=== PATIENT | female | born 1945 | race Caucasian/White ===

== ENCOUNTER → 2024-06-14 11:02 | Outpatient (CLI) | payer OTHER ==
[2024-06-14 11:38] LABS: URINE APPEARANCE Clear; URINE BILIRRUBIN Negative (NEGATIVE); URINE BLOOD Negative; URINE COLOR Yellow; URINE KETONE Negative (NEGATIVE); URINE LEUKOCYTE Negative; URINE NITRATE Negative; URINE PROTEIN Negative (NEGATIVE); URINE UROBILINOGEN 0.2 E.U./dl
[2024-06-14 11:42] LABS: URINE BACTERIA 57.9 uL (0.0-1933); URINE RBC 41.5 uL (0.0-20.8); URINE WBC 8.9 uL (0.0-23.2)
[2024-06-14 11:48] LABS: HEMATOCRIT 29.7 % (36.0-45.00); MEAN CELL VOLUME 96.3 fL (80.00-100.00); MEAN CORPUSCULAR HEMOGLOBIN 32.5 pg (27.00-32.0); MEAN CORPUSCULAR HGB CONC 33.7 g/dl (32.0-36.0); PLATELET COUNT 169 K/uL (150-450); RED BLOOD COUNT 3.09 M/uL (4.00-6.00); RED CELL DISTRIBUTION WIDTH 14.7 % (11.5-14.5)
[2024-06-14 11:53] LABS: URINE CAST 0.15 uL (0.0-1.40); URINE GLUCOSE >=1000 MG/DL (NEGATIVE)
[2024-06-14 12:33] LABS: % SATURACION 27.8 % (15-50); ALBUMIN 3.7 gm/dL (3.4-5.0); BILIRUBIN TOTAL 0.48 mg/dL (0.3-1.2); CALCIUM 9.2 mg/dL (8.5-10.1); CREATININE SERUM 0.96 mg/dL (0.55-1.02); FERRITIN 75.3 NG/ML (8-252); GFR 55.92; GLOBULINA 3.5 G/DL (2.4-3.5); POTASSIUM 4.03 mEq/L (3.5-5.1); TOTAL PROTEIN 7.2 gm/dL (6.4-8.2)
[2024-06-14 12:37] LABS: TSH 1.16 uIU/mL (0.358-3.74)
[2024-06-14 13:07] LABS: FOLIC ACID > 20.00 ng/ml (4.78-20)
[2024-06-15 10:42] LABS: MANUAL PLATELET COUNT 232
[2024-06-15 10:45] LABS: PLATELET ESTIMATE NORMAL (NORMAL)
[2024-06-16 09:11] LABS: CA 125 11.4 U/mL (0.0-38.1); CA 15-3 10.3 U/mL (0.0-25.0)
[2024-06-16 13:09] LABS: ERYTHROPOIETIN 66.8 mIU/mL (2.6-18.5)
== END | disposition home or self-care (01) ==
LOC: LAB 11:02
PROVIDERS: ATTEND Internal Medicine Hematology & Oncology
DX: D50.8 Other iron deficiency anemias (principal); R79.9 Abnormal finding of blood chemistry, unspecified; I10 Essential (primary) hypertension; R74.02 Elevation of levels of lactic acid dehydrogenase [LDH]; K76.89 Other specified diseases of liver; Z80.3 Family history of malignant neoplasm of breast; D68.62 Lupus anticoagulant syndrome; D69.3 Immune thrombocytopenic purpura; C54.1 Malignant neoplasm of endometrium; D51.3 Other dietary vitamin B12 deficiency anemia; D51.1 Vitamin B12 deficiency anemia due to selective vitamin B12 malabsorption with proteinuria; D63.1 Anemia in chronic kidney disease; E11.22 Type 2 diabetes mellitus with diabetic chronic kidney disease; E78.2 Mixed hyperlipidemia; E03.8 Other specified hypothyroidism; K90.89 Other intestinal malabsorption; N63.0 Unspecified lump in unspecified breast; N60.82 Other benign mammary dysplasias of left breast; R97.8 Other abnormal tumor markers; I11.9 Hypertensive heart disease without heart failure; E78.00 Pure hypercholesterolemia, unspecified; Z13.29 Encounter for screening for other suspected endocrine disorder; E11.9 Type 2 diabetes mellitus without complications

== ENCOUNTER 2024-07-30 08:58 | Outpatient (CLI) | payer OTHER ==
[2024-07-30 11:09] LABS: HEMATOCRIT 30.6 % (36.0-45.00); HEMOGLOBIN 10.5 g/dL (12.0-15.00); MEAN CELL VOLUME 95.8 fL (80.00-100.00); MEAN CORPUSCULAR HEMOGLOBIN 32.8 pg (27.00-32.0); MEAN CORPUSCULAR HGB CONC 34.3 g/dl (32.0-36.0); PLATELET COUNT 151 K/uL (150-450); RED CELL DISTRIBUTION WIDTH 15.3 % (11.5-14.5)
== END 2024-07-30 09:04 | disposition home or self-care (01) ==
LOC: LAB 08:58
PROVIDERS: ATTEND Internal Medicine Hematology & Oncology
DX: D50.8 Other iron deficiency anemias (principal); R97.0 Elevated carcinoembryonic antigen [CEA]; R97.8 Other abnormal tumor markers; D68.62 Lupus anticoagulant syndrome; D69.3 Immune thrombocytopenic purpura; C54.1 Malignant neoplasm of endometrium; D51.1 Vitamin B12 deficiency anemia due to selective vitamin B12 malabsorption with proteinuria; D51.3 Other dietary vitamin B12 deficiency anemia; D63.1 Anemia in chronic kidney disease; E11.22 Type 2 diabetes mellitus with diabetic chronic kidney disease; N18.30 Chronic kidney disease, stage 3 unspecified; I10 Essential (primary) hypertension; E78.2 Mixed hyperlipidemia; E03.8 Other specified hypothyroidism; K90.89 Other intestinal malabsorption; N63.0 Unspecified lump in unspecified breast; N60.82 Other benign mammary dysplasias of left breast

== ENCOUNTER 2024-10-21 09:55 | Outpatient (CLI) | payer OTHER | END 2024-10-21 10:07 | disposition home or self-care (01) | LOC: MRI 09:55 | PROVIDERS: ATTEND Specialist | DX: M05.79 Rheumatoid arthritis with rheumatoid factor of multiple sites without organ or systems involvement (principal); M16.12 Unilateral primary osteoarthritis, left hip | CPT/HCPCS: 73721 ==

== ENCOUNTER → 2024-10-21 10:57 | Outpatient (CLI) | payer OTHER ==
[2024-10-21 12:24] LABS: CREATININE SERUM 1.14 mg/dL (0.55-1.02)
== END | disposition home or self-care (01) ==
LOC: LAB 10:57
PROVIDERS: ATTEND Radiology Diagnostic Radiology
DX: M05.79 Rheumatoid arthritis with rheumatoid factor of multiple sites without organ or systems involvement (principal)

== ENCOUNTER 2025-01-03 10:31 | Outpatient (CLI) | payer OTHER ==
[2025-01-03 11:14] LABS: HEMATOCRIT 30.8 % (36.0-45.00); HEMOGLOBIN 10.2 g/dL (12.0-15.00); MEAN CELL VOLUME 96.8 fL (80.00-100.00); MEAN CORPUSCULAR HEMOGLOBIN 32.1 pg (27.00-32.0); MEAN CORPUSCULAR HGB CONC 33.2 g/dl (32.0-36.0); PLATELET COUNT 106 K/uL (150-450); RED BLOOD COUNT 3.18 M/uL (4.00-6.00); RED CELL DISTRIBUTION WIDTH 15.2 % (11.5-14.5)
[2025-01-03 12:25] LABS: ALBUMIN 3.9 gm/dL (3.4-5.0); BILIRUBIN TOTAL 0.62 mg/dL (0.3-1.2); CALCIUM 9.4 mg/dL (8.5-10.1); CHOL HDL RATIO 1.7 (0-5.0); CREATININE SERUM 1.15 mg/dL (0.55-1.02); GFR 45.29; GLOBULINA 3.7 G/DL (2.4-3.5); POTASSIUM 3.86 mEq/L (3.5-5.1); TOTAL PROTEIN 7.6 gm/dL (6.4-8.2)
[2025-01-03 13:30] LABS: FOLIC ACID > 20.00 ng/ml (4.78-20)
[2025-01-03 16:33] LABS: FERRITIN 30.8 NG/ML (8-252)
== END 2025-01-03 10:36 | disposition home or self-care (01) ==
LOC: LAB 10:31
PROVIDERS: ATTEND Internal Medicine Hematology & Oncology
DX: Z80.3 Family history of malignant neoplasm of breast (principal); D69.3 Immune thrombocytopenic purpura; C54.1 Malignant neoplasm of endometrium; D68.61 Antiphospholipid syndrome; D51.3 Other dietary vitamin B12 deficiency anemia; D51.1 Vitamin B12 deficiency anemia due to selective vitamin B12 malabsorption with proteinuria; D63.1 Anemia in chronic kidney disease; E11.22 Type 2 diabetes mellitus with diabetic chronic kidney disease; N18.30 Chronic kidney disease, stage 3 unspecified; I10 Essential (primary) hypertension; E78.2 Mixed hyperlipidemia; E03.8 Other specified hypothyroidism; K90.89 Other intestinal malabsorption; N63.0 Unspecified lump in unspecified breast; N60.82 Other benign mammary dysplasias of left breast; R97.0 Elevated carcinoembryonic antigen [CEA]; I13.10 Hypertensive heart and chronic kidney disease without heart failure, with stage 1 through stage 4 chronic kidney disease, or unspecified chronic kidney disease; E78.00 Pure hypercholesterolemia, unspecified

== ENCOUNTER 2025-02-23 09:31 | Outpatient (CLI) | payer OTHER | END 2025-02-23 09:36 | disposition home or self-care (01) | LOC: SONOGRAMA 09:31 | PROVIDERS: ATTEND Internal Medicine Endocrinology, Diabetes & Metabolism | DX: E04.2 Nontoxic multinodular goiter (principal) ==

== ENCOUNTER 2025-07-09 10:33 | Outpatient (CLI) | payer OTHER ==
[2025-07-09 11:29] LABS: BASO % 0.7 % (0.1-1.2); EOS # 0.10 (0.04-0.54); EOS % 2.3 % (0.7-7.0); LYMPH # 1.62 (1.18-3.74); LYMPH % 37.4 % (19.3-53.1); MEAN PLATELET VOLUME 12.80 fl (9.4-12.4); MONO # 0.64 (0.24-0.82); NEUT # 1.91 (1.56-6.13); NEUT % 44.1 % (34.0-71.1); RED CELL DISTRIBUTION WIDTH 15.5 % (11.6-14.4)
[2025-07-09 12:03] LABS: % SATURACION 22.9 % (15-50); ALT/SGPT 59.0 U/L (12-78); AST/SGOT 35.0 U/L (15-37); BILIRUBIN TOTAL 0.57 mg/dL (0.3-1.2); BUN CREA RATIO 19.0 (7.0-25.0); CREATININE SERUM 1.7 mg/dL (0.55-1.02); FE 83.0 ug/dl (50-170); GFR 28.84; GLOBULINA 3.5 G/DL (2.4-3.5); GLUCOSE FASTING 99.0 mg/dL (65-100); LDH 257.0 U/L (84-246); OSMOLALITY SERUM 292.0 MOSM/KG (275-295)
[2025-07-09 12:05] LABS: MONO % 14.8 % (4.7-12.5)
[2025-07-11 15:33] LABS: FOLIC ACID > 20.00 ng/ml (4.78-20); VITAMIN D3 25 HYDROXY 54.24 ng/ml (30-120)
== END 2025-07-09 23:00 | disposition home or self-care (01) ==
LOC: LAB 10:33
PROVIDERS: ATTEND Internal Medicine Hematology & Oncology
DX: D50.8 Other iron deficiency anemias (principal); I10 Essential (primary) hypertension; R74.02 Elevation of levels of lactic acid dehydrogenase [LDH]; K76.89 Other specified diseases of liver; D68.62 Lupus anticoagulant syndrome; D69.3 Immune thrombocytopenic purpura; D72.818 Other decreased white blood cell count; D68.61 Antiphospholipid syndrome; D51.3 Other dietary vitamin B12 deficiency anemia; D51.1 Vitamin B12 deficiency anemia due to selective vitamin B12 malabsorption with proteinuria; D63.1 Anemia in chronic kidney disease; E11.22 Type 2 diabetes mellitus with diabetic chronic kidney disease; N18.30 Chronic kidney disease, stage 3 unspecified; E78.2 Mixed hyperlipidemia; E03.8 Other specified hypothyroidism; K90.89 Other intestinal malabsorption; N63.0 Unspecified lump in unspecified breast; N60.82 Other benign mammary dysplasias of left breast; R97.0 Elevated carcinoembryonic antigen [CEA]; M06.9 Rheumatoid arthritis, unspecified; C56.9 Malignant neoplasm of unspecified ovary

== ENCOUNTER 2025-07-13 09:16 | Inpatient (IN) | payer OTHER ==
[~2025-07-13] VITALS: Ht 154.9 cm; Wt 72.6 kg
[2025-07-13] MEDS ORDERED: RINVOQ ER15 MG PO (09:56)
[2025-07-13] MEDS ORDERED: TOPROL XL50 M1 (09:57)
[2025-07-13] MEDS ORDERED: CARDURA8 MG PO (09:57)
[2025-07-13] MEDS ORDERED: HYDRALAZINE HC100 MG PO (09:57)
[2025-07-13] MEDS ORDERED: FARXIGA5 MG PO (09:58)
[2025-07-13] MEDS ORDERED: CRESTOR40 MG PO (09:58)
--- NOTE | 2025-07-13 10:06 | NUR ---
SE RECIBE PTE FEMINA ALERTA Y ORIENTADA, REFIERE [facility], DEVIDO A QUE VALERO LM ONCO LE INFORMO QUE TIENE HEMOGLOBINA BAJA, HGB:8.1 HCT:24.5, AL MOMENTO SE LE VLADIMIR SIGNOS VITALES PTE EN ESPERA DE EVALUACION MEDICA.
[2025-07-13] MEDS ORDERED: hydrALAZINE HCL 20 MG VIAL IV ONE (10:30)
[2025-07-13] MEDS ORDERED: ONDANSETRON HCL 2 MG/ML VIAL IV ONE (10:30)
[2025-07-13] MEDS ORDERED: 0.9 % SODIUM CHLORIDE 1,000 ML IV SCH ×2 (10:30→15:45)
[2025-07-13] MEDS ORDERED: ONDANSETRON HCL 2 MG/ML VIAL ONE (10:49)
[2025-07-13] MEDS ORDERED: hydrALAZINE HCL 20 MG VIAL ONE (10:49)
--- NOTE | 2025-07-13 11:41 | NUR ---
SE ORIENTA A PACIENTE SOBRE [place] MEDICO, REFIERE ENTENDER. SE COLECTAN MUESTRAS DE LABORATORIO BAJO MEDIDAS ASEPTICAS. SE CANALIZA A PACIENTE Y SE ADMINISTRAN MEDICAMENTOS VAN ORDEN MEDICA. PERSONAL DE TERAPIA RESPIRATORIA REALIZA ABGS. SE NOTIFICA X-RAY.
[2025-07-13 11:50] LABS: BASO % 0.8 % (0.1-1.2); EOS # 0.09 (0.04-0.54); EOS % 1.8 % (0.7-7.0); LYMPH # 0.80 (1.18-3.74); LYMPH % 15.9 % (19.3-53.1); MEAN PLATELET VOLUME 12.60 fl (9.4-12.4); MONO # 0.60 (0.24-0.82); MONO % 11.9 % (4.7-12.5); NEUT # 3.47 (1.56-6.13); NEUT % 69.0 % (34.0-71.1); RED CELL DISTRIBUTION WIDTH 15.1 % (11.6-14.4)
[2025-07-13 11:57] LABS: URINE APPEARANCE Clear; URINE BACTERIA 91.2 uL (0.0-1933); URINE BILIRRUBIN Negative (NEGATIVE); URINE BLOOD Large; URINE COLOR Orange; URINE EPITHELIAL CELLS 14.6 uL (0.0-38.8); URINE KETONE Negative (NEGATIVE); URINE LEUKOCYTE Negative; URINE NITRATE Negative; URINE RBC 1253.8 uL (0.0-20.8); URINE UROBILINOGEN 0.2 E.U./dl; URINE WBC 32.2 uL (0.0-23.2)
[2025-07-13 12:05] LABS: URINE CAST 1.02 uL (0.0-1.40); URINE GLUCOSE 500 MG/DL (NEGATIVE); URINE PROTEIN 300 (NEGATIVE)
[2025-07-13 12:15] LABS: ALT/SGPT 42.0 U/L (12-78); AST/SGOT 36.0 U/L (15-37); BILIRUBIN TOTAL 0.7 mg/dL (0.3-1.2); BUN CREA RATIO 15.0 (7.0-25.0); CREATININE SERUM 1.7 mg/dL (0.55-1.02); GFR 28.84; GLOBULINA 4.0 G/DL (2.4-3.5); GLUCOSE FASTING 128.0 mg/dL (65-100); INR 1.05; OSMOLALITY SERUM 286.0 MOSM/KG (275-295)
[2025-07-13] MEDS ORDERED: hydrALAZINE HCL 20 MG VIAL IV PRN (13:30)
--- NOTE | 2025-07-13 14:46 | NUR ---
SE VERIFICA INFIMACION DE PTE CON PTE. SE REQUISA 2 UNIDADES DE PRBC HFRANCIONADA. SE VLADIMIR TUBOS PILOTOS Y SE LLEVAN A LABORATORIO. PTE FIRMA CONSENTIMINETO Y SE COLOCA EN RECORD DE PTE. SE HACE ENTREGA DE ENVASE PARA U/C PENDIENTE. PTE COLECTE MUESTRA.
[2025-07-13] MEDS ORDERED: FAMOTIDINE/PF 20 MG in 0.9 % SODIUM CHLORIDE 8 ML IV PUSH SCH (15:48)
[2025-07-13] MEDS ORDERED: ACETAMINOPHEN 500 MG GEL..CAP PO PRN (16:00)
[2025-07-13] MEDS ORDERED: ROSUVASTATIN CALCIUM 10 MG TABLET PO SCH (17:00)
[2025-07-13] MEDS ORDERED: DOXAZOSIN MESYLATE 8 MG TABLET PO SCH (17:00)
[2025-07-13 17:32] VITALS: BP 130/90
[2025-07-14 03:23] VITALS: BP 147/61; O2SAT 95
[2025-07-14 10:18] VITALS: BP 158/73; O2SAT 98
[2025-07-14 17:20] VITALS: BP 150/55; O2SAT 94
[2025-07-15 03:01] VITALS: BP 135/61; O2SAT 93
[2025-07-15 08:35] VITALS: BP 138/69; O2SAT 97
[2025-07-15] MEDS ORDERED: DIPHENHYDRAMINE HCL/ZINC ACET 28.3 GM CREAM.GM. TOP SCH (14:00)
[2025-07-15] MEDS ORDERED: MUPIROCIN 22 GM OINT..GM TUBE TOP SCH (14:00)
[2025-07-15] MEDS ORDERED: SOD FERRIC GLUC COMPLX/SUCROSE 62.5 MG/5 ML AMPUL IV SCH (17:00)
[2025-07-15] MEDS ORDERED: Cyanocobalamin/Mecobalamin 1 TAB.SL SL SCH (17:00)
[2025-07-15 20:46] VITALS: BP 158/65; O2SAT 95
[2025-07-16 03:46] VITALS: BP 148/60; O2SAT 95
[2025-07-16 06:46] LABS: BASO % 0.7 % (0.1-1.2); EOS # 0.07 (0.04-0.54); EOS % 1.2 % (0.7-7.0); LYMPH # 1.42 (1.18-3.74); LYMPH % 25.2 % (19.3-53.1); MEAN PLATELET VOLUME 13.70 fl (9.4-12.4); MONO # 0.64 (0.24-0.82); MONO % 11.3 % (4.7-12.5); NEUT # 3.44 (1.56-6.13); NEUT % 61.1 % (34.0-71.1); RED CELL DISTRIBUTION WIDTH 17.5 % (11.6-14.4)
[2025-07-16 09:27] LABS: BUN CREA RATIO 13.0 (7.0-25.0); CREATININE SERUM 2.12 mg/dL (0.55-1.02); GFR 22.36; GLUCOSE FASTING 102.0 mg/dL (65-100); OSMOLALITY SERUM 287.0 MOSM/KG (275-295)
[2025-07-16 09:28] LABS: BUN CREA RATIO 13.0 (7.0-25.0); CREATININE SERUM 2.12 mg/dL (0.55-1.02); GFR 22.36; GLUCOSE FASTING 105.0 mg/dL (65-100); OSMOLALITY SERUM 285.0 MOSM/KG (275-295)
[2025-07-16 09:34] VITALS: BP 134/67; O2SAT 96
[2025-07-16 09:39] LABS: ALT/SGPT 47.0 U/L (12-78); AST/SGOT 51.0 U/L (15-37); BILIRUBIN TOTAL 1.04 mg/dL (0.3-1.2); BUN CREA RATIO 13.0 (7.0-25.0); CREATININE SERUM 2.27 mg/dL (0.55-1.02); GFR 20.66; GLOBULINA 3.3 G/DL (2.4-3.5); GLUCOSE FASTING 104.0 mg/dL (65-100); OSMOLALITY SERUM 284.0 MOSM/KG (275-295)
[2025-07-16 20:35] VITALS: BP 134/72
[2025-07-17] MEDS ORDERED: FLUCONAZOLE IN NACL,ISO-OSM 200 MG/100 ML PIGGYBAG IV SCH (00:58)
[2025-07-17 02:23] VITALS: BP 136/64; O2SAT 95
[2025-07-17 09:37] VITALS: BP 133/70; O2SAT 95
[2025-07-21 14:12] LABS: a:g ratio 0.9 (0.7-1.7); alpha 1 g 0.3 g/dL (0.0-0.4); beta g 0.9 g/dL (0.7-1.3); gamma g 1.2 g/dL (0.4-1.8); globulin t 3.2 g/dL (2.2-3.9); prot total 6.0 g/dL (6.0-8.5)
== END 2025-07-17 11:23 | disposition home or self-care (01) | DRG 683 ==
LOC: ER 09:16 → SEC-K 15:50 → MEDJ 15:50
PROVIDERS: General Practice; Internal Medicine Nephrology; ADMIT Internal Medicine; ATTEND Internal Medicine
PROC: 30233N1 Transfusion of Nonautologous Red Blood Cells into Peripheral Vein, Percutaneous Approach (ICD-10-PCS; principal; 2025-07-14)
DX: N17.8 Other acute kidney failure (principal); K51.90 Ulcerative colitis, unspecified, without complications; D64.9 Anemia, unspecified; I10 Essential (primary) hypertension; E78.49 Other hyperlipidemia; M06.8A Other specified rheumatoid arthritis, other specified site; E78.5 Hyperlipidemia, unspecified